=== PATIENT | female | born 1970 | race Caucasian/White ===

== ENCOUNTER 2023-05-20 20:30 | Emergency (ER) | payer BC, OTHER ==
[2023-05-20] MEDS ORDERED: diphenhydrAMINE 25 MG CAP ONE (21:33)
== END 2023-05-20 21:47 | disposition home or self-care (01) ==
LOC: MADERS 20:30
DX: T78.1XXA Other adverse food reactions, not elsewhere classified, initial encounter (principal); R20.2 Paresthesia of skin; E10.9 Type 1 diabetes mellitus without complications; E03.9 Hypothyroidism, unspecified; Z79.899 Other long term (current) drug therapy; Z79.84 Long term (current) use of oral hypoglycemic drugs
CPT/HCPCS: 99283

== ENCOUNTER 2024-10-30 20:25 | Emergency (ER) | payer OTHER | END 2024-10-30 21:32 | disposition home or self-care (01) | LOC: MADERS 20:25 | DX: S52.592A Other fractures of lower end of left radius, initial encounter for closed fracture (principal); E10.9 Type 1 diabetes mellitus without complications; E03.9 Hypothyroidism, unspecified; W18.30XA Fall on same level, unspecified, initial encounter; Z79.84 Long term (current) use of oral hypoglycemic drugs; Z79.4 Long term (current) use of insulin; Z79.899 Other long term (current) drug therapy | CPT/HCPCS: 29105 ==